=== PATIENT | female | born 1970 | race Caucasian/White ===

== ENCOUNTER → 2018-04-02 15:19 | Outpatient (REF) | payer SELFPAY | LOC: LAB 15:19 | PROVIDERS: Visit Provider Student in an Organized Health Care Education/Training Program | DX: J30.9 Allergic rhinitis, unspecified (principal) | CPT/HCPCS: 87070; 87075; 87205 ==

== ENCOUNTER 2019-01-31 16:27 | Emergency (ER) | payer SELFPAY ==
[2019-01-31 16:40] VITALS: BP 155/90; PULSE 56; RESP 12; TEMP 36.2; O2SAT 99
--- NOTE | 2019-01-31 17:00 | PC.NURSE ---
pt using warm compresses at home.
--- NOTE | 2019-01-31 18:12 | ED_ITS ---
HPI - Skin/Abscess/Foreign Bdy <ROXIE Bernal - Last Filed: 01/31/19 18:23> General Chief complaint: Skin/Abscess/Foreign Body Stated complaint: lump on inside of labia Time Seen by Provider: 01/31/19 16:34 Source: patient Mode of arrival: Ambulatory Limitations: no limitations History of Present Illness HPI narrative: This is a 48-year-old female, prior smoker, who presents to ED with discomfort and swelling in her genital area for last 10 days. Patient reports the swelling and pain is right on top of the clitoris. Patient reports had a wax done about 3 weeks ago. Patient denies history of diabetes, fever, chills, nausea or vomiting. Patient denies unusual vaginal discharge. Patient has been using warm pack during last 3 days. She was unable to view the area to assess at home but felt it is very large and painful. Related Data Previous Rx's Medication Instructions Recorded doxycycline hyclate 100 mg PO BID #10 tab 01/31/19 Allergies Allergy/AdvReac Type Severity Reaction Status Date / Time No Known Drug Allergies Allergy Verified 01/31/19 17:10 Review of Systems <ROXIE Bernal - Last Filed: 01/31/19 18:23> Review of Systems Narrative: General: Denies fever, chills, fatigue, malaise, sweats. HEENT: Denies sinus pain, ear pain, sore throat, difficulty swallowing, dizziness. Respiratory: Denies dyspnea, cough, wheezing, hemoptysis, sputum. Cardiovascular: Denies chest pain, palpitations, orthopnea, edema. Gastrointestinal: Denies nausea, vomiting, abdominal pain, diarrhea, constipation, melena. : Denies dysuria, frequency, incontinence, hematuria, urinary retention. Musculoskeletal: Denies weakness, joint pain or bony pain. Skin: See HPI Neurologic: Denies weakness, headache, numbness, change in speech, confusion, seizures, incoordination. Psychiatric: No concerning psychosocial issues. 12-point review of systems is negative except for those stated above. Patient History <ROXIE Bernal - Last Filed: 01/31/19 18:23> Medical History No significant past medical history (Acute) Surgical History No pertinent past surgical history (Acute) Social History Smoking Status: Former smoker Substance Use Type: does not use Exam <ROXIE Bernal - Last Filed: 01/31/19 18:23> Narrative Exam Narrative: General appearance: well developed, well nourished, in no acute distress. Head: normocephalic, atraumatic, no scalp lesions, non-tender. Eye: pupil equal, round. EOMI. Nose: nares patent. Oral: mucosa moist. Neck/Thyroid: neck supple, full range of motion, no visible masses. Skin: no suspicious rashes, lesions over visible areas. Warm and dry. Heart: no clubbing, no cyanosis, no edema. Lungs: Breathing even and unlabored. No stridor. No accessory muscles used. Chest: normal shape and expansion. Abdomen: non-obese, non-distended. Neurologic: alert and oriented. Cognitive exam, [employer] and PNS grossly intact on informal exam. Psych: good eye contact, normal affect. Initial Vital Signs Initial Vital Signs: Vital Signs Temperature 97.2 F L 01/31/19 16:40 Pulse Rate 56 L 01/31/19 16:40 Respiratory Rate 12 01/31/19 16:40 Blood Pressure 155/90 H 01/31/19 16:40 Pulse Oximetry 99 01/31/19 16:40 External Female Exam: erythema, external swelling (Superior to clitoris, induration.), external lesions (Superior to clitoris with very small pustule and no active draining noted), No urethral discharge and other (Very tender with light palpation) <Gonzalo Richards DO - Last Filed: 01/31/19 18:28> Initial Vital Signs Initial Vital Signs: Vital Signs Temperature 97.2 F L 01/31/19 16:40 Pulse Rate 56 L 01/31/19 16:40 Respiratory Rate 12 01/31/19 16:40 Blood Pressure 155/90 H 01/31/19 16:40 Pulse Oximetry 99 01/31/19 16:40 Course <ROXIE Bernal - Last Filed: 01/31/19 18:23> Vital Signs Vital signs: Vital Signs - 8 hr 01/31/19 16:40 Temperature 97.2 F L Pulse Rate 56 L Respiratory Rate 12 Blood Pressure 155/90 H Pulse Oximetry 99 <Gonzalo RichardsDO - Last Filed: 01/31/19 18:28> Vital Signs Vital signs: Vital Signs - 8 hr 01/31/19 16:40 Temperature 97.2 F L Pulse Rate 56 L Respiratory Rate 12 Blood Pressure 155/90 H Pulse Oximetry 99 MDM - Skin/Abscess/Foreign Bdy <ROXIE Bernal - Last Filed: 01/31/19 18:23> Differential Diagnosis Differential diagnosis: Likely cellulitis and other (Abscess in clitoral schulz) Medical Records Attestation: I reviewed the patient's medical records. Lab Data Attestation: I reviewed the patient's lab results. [facility] Narrative Medical decision making narrative: This is a 48 year female who presents to ED with about 10 day duration of discomfort and swelling in clitorial schulz. Patient denies constitutional symptoms. Pain increases with crossing legs, movement, sitting. Physical exam appreciated of induration with small pustules on affected site. Patient advised to continue with warm pack and start doxycycline 100 mg b.i.d. dose for 5 days course. Patient also advised to take [id number] Tylenol and or Motrin as needed for discomfort. Return precautions were discussed and Patient agrees with treatment plan and no further questions were expressed at this time. Discharge Plan Departure Patient Disposition: Home Clinical Impression: Cellulitis of female genitalia Clinical Impression: (Ruled Out): Cellulitis Discharge Date/Time: 01/31/19 17:50 Instructions: DI for Cellulitis -- Adult Activity Restrictions/Additional Instructions: You have been diagnosed with [cellulitis in genital area]. What to do: *Take your medications as directed. Please start doxycycline twice a day for 5 day course. Doxycycline may cause stomach upset sensitivity to sun. Please continue to use warm pack or Sitz bath 3 to 4 times a day. *Follow up with your primary care provider in 2-3 days, call for an appointment. Let them know you were seen in the ED and that we asked you to be seen in follow up. *Return to ED if you have any new, worsening, or concerning symptoms, such as [chest pain, breathing difficulty, unable to tolerate fluids, or any acute conc erns.]. Prescriptions: New doxycycline hyclate 100 mg tablet 100 mg PO BID Qty: 10 RF: 0 Referrals: [facility] [Outside] <Gonzalo Richards, DO - Last Filed: 01/31/19 18:28> Sign Out Provider Sign Out Attestation: Dr Richards Co-Sign Statement: I was available for consultation during this patient's emergency department visit. This chart is signed by myself for administrative purposes only. I did not have direct contact with this patient during this visit. They were seen independently by the APC.
== END 2019-01-31 17:50 | disposition home or self-care (01) ==
PROVIDERS: Emergency Provider Nurse Practitioner Family
DX: N76.4 Abscess of vulva (principal)
CPT/HCPCS: 99282; 99283